=== PATIENT | female | born 1980 | race Two or more races ===

== ENCOUNTER 2017-09-12 18:12 | Inpatient (IN) | payer MEDICAID ==
[~2017-09-12] VITALS: Ht 160 cm; Wt 79.2 kg
[2017-09-12] MEDS ORDERED: SODIUM CHLORIDE 0.9% 500 ML IV ONE (19:31)
[2017-09-12 19:32] LABS: Basophils # (auto) 0 uL; Basophils % (auto) 0.4 % (0.0-2.0); Eosinophils # (auto) 0 uL; Eosinophils % (auto) 0.4 % (0.0-7.0); Hemoglobin 14.1 g/dL (12.2-16.2); Lymphocytes # (auto) 2.3 uL; Lymphocytes % (auto) 19.8 % (10.0-50.0); Mean Corpuscular Hemoglobin 30.2 pg (28.0-32.0); Mean Corpuscular Hgb Conc. 32.9 g/dL (32.0-36.0); Mean Corpuscular Volume 91.9 fL (80.0-100.0); Monocytes # (auto) 0.5 uL; Monocytes % (auto) 4.6 % (0.0-12.0); Neutrophils # (auto) 8.6 uL; Neutrophils % (auto) 74.8 % (37.0-80.0); Nucleated Red Blood Cells % 0.1 %; Platelet Count (auto) 482 10^3/uL (140-450); Red Blood Cells 4.68 10^6/uL (4.0-5.20); Red Cell Distribution Width 13.1 % (11.8-14.3); White Blood Cell 11.5 10^3/uL (4.4-10.8)
[2017-09-12] MEDS ORDERED: HYDROmorphone HCL 2 MG/ML VL IV ONE (19:45)
[2017-09-12] MEDS ORDERED: InsuLIN REG 1unit/0.01ml Soln (100units/ml) IV ONE (19:45)
[2017-09-12] MEDS ORDERED: ONDANSETRON HCL 4 MG/2 ML VIAL IV ONE (19:45)
[2017-09-12 19:55] LABS: Alanine Aminotransferase 21 U/L (13-56); Albumin 3.2 g/dL (3.4-5.0); Alkaline Phosphatase 90 U/L (45-117); Anion Gap 15 (5-15); Aspartate Aminotransferase 10 U/L (15-37); BUN/Creatinine Ratio 13.5; Bilirubin, Total 0.5 mg/dL (0.2-1.0); Blood Urea Nitrogen 14 mg/dL (7-18); Calcium 8.4 mg/dL (8.5-10.1); Carbon Dioxide 18 mmol/L (21-32); Chloride 99 mmol/L (98-107); GFR African American 78 mL/min; GFR Non-African American 64 mL/min; Potassium 3.9 mmol/L (3.5-5.1); Sodium 132 mmol/L (136-145); Total Protein 7.2 g/dL (6.4-8.2)
[2017-09-12 20:22] LABS: Glucose 604 mg/dL (74-106)
[2017-09-12 21:22] LABS: Urine Bacteria NONE SEEN /hpf (None Seen); Urine Blood Negative /uL (Negative); Urine Mucus FEW (None Seen); Urine WBC 46 /hpf (0 - 5)
[2017-09-12] MEDS ORDERED: ONDANSETRON HCL 4 MG/2 ML VIAL IV PRN (21:30)
[2017-09-12] MEDS ORDERED: SODIUM CHLORIDE 0.9% 1,000 ML IV ONE (21:30)
[2017-09-12] MEDS ORDERED: TEMAZEPAM 15 MG CAP PO PRN (21:30)
[2017-09-12] MEDS ORDERED: CYCLOBENZAPRINE HCL 10 MG TAB PO PRN ×2 (21:30→22:15)
[2017-09-12] MEDS ORDERED: DEXTROSE (50%) 50ML SYRG IV PRN (21:30)
[2017-09-12] MEDS ORDERED: ACETAMINOPHEN 325 MG TAB PO PRN (21:30)
[2017-09-12] MEDS: FAMOTIDINE 20 MG TAB PO SCH (21:43)
[2017-09-12] MEDS ORDERED: cefTRIAXone 1GM/10ml IVPUSH 10 ML IV ONE (22:15)
[2017-09-12 23:00] VITALS: BP 141/95
[2017-09-12] MEDS ORDERED: ALPR1TAB2 PO (23:08)
[2017-09-12] MEDS ORDERED: INSLANTI SC (23:08)
[2017-09-12] MEDS: SODIUM CHLORIDE 0.9% 1,000 ML IV SCH (23:45)
[2017-09-12] MEDS: HYDROcodone-ACET 5/325MG TAB PO PRN (23:56)
[2017-09-13] MEDS: InsuLIN REG 1unit/0.01ml Soln (100units/ml) SC SCH ×6 (00:04→21:25)
[2017-09-13] MEDS: ACCU-CHEK COMFORT CURVE STRIP VI SCH ×6 (00:04→21:24)
[2017-09-13] MEDS: HYDROcodone-ACET 5/325MG TAB PO PRN ×2 (04:10→08:34)
[2017-09-13 05:00] VITALS: BP 108/68
[2017-09-13 06:23] LABS: Basophils # (auto) 0 uL; Basophils % (auto) 0.2 % (0.0-2.0); Eosinophils # (auto) 0.2 uL; Eosinophils % (auto) 1.7 % (0.0-7.0); Hematocrit 39.2 % (36.0-46.0); Hemoglobin 13.6 g/dL (12.2-16.2); Lymphocytes # (auto) 4.1 uL; Lymphocytes % (auto) 39.2 % (10.0-50.0); Mean Corpuscular Hemoglobin 31.3 pg (28.0-32.0); Mean Corpuscular Hgb Conc. 34.8 g/dL (32.0-36.0); Mean Corpuscular Volume 89.9 fL (80.0-100.0); Monocytes # (auto) 0.8 uL; Monocytes % (auto) 7.5 % (0.0-12.0); Neutrophils # (auto) 5.4 uL; Neutrophils % (auto) 51.4 % (37.0-80.0); Nucleated Red Blood Cells % 0.1 %; Platelet Count (auto) 448 10^3/uL (140-450); Red Blood Cells 4.36 10^6/uL (4.0-5.20); Red Cell Distribution Width 12.7 % (11.8-14.3); White Blood Cell 10.5 10^3/uL (4.4-10.8)
[2017-09-13 06:29] LABS: Albumin 2.7 g/dL (3.4-5.0); Calcium 7.6 mg/dL (8.5-10.1); Potassium 3.5 mmol/L (3.5-5.1)
[2017-09-13 06:34] LABS: Bilirubin, Total 0.2 mg/dL (0.2-1.0); Total Protein 6.4 g/dL (6.4-8.2)
[2017-09-13] MEDS: SODIUM CHLORIDE 0.9% 1,000 ML IV SCH ×2 (08:39→21:23)
[2017-09-13 09:00] VITALS: BP 117/80
[2017-09-13] MEDS: FAMOTIDINE 20 MG TAB PO SCH ×2 (09:30→23:06)
[2017-09-13] MEDS: cefTRIAXone 1GM/10ml IVPUSH 10 ML IV SCH (09:30)
[2017-09-13] MEDS ORDERED: ENOXAPARIN SOD 40 MG/0.4 ML SYRINGE SC SCH (10:00)
[2017-09-13] MEDS ORDERED: LORazepam 2MG/ML-1ML VIAL IV ONE (10:15)
[2017-09-13] MEDS: MORPHINE SULFATE 4 MG/ML SYR/VIAL IV PRN (12:13)
[2017-09-13 13:00] VITALS: BP 120/78
[2017-09-13] MEDS: GABAPENTIN 300 MG CAP PO SCH ×2 (14:12→23:06)
[2017-09-13 17:00] VITALS: BP 113/74
[2017-09-13 22:00] VITALS: BP 119/76
[2017-09-13] MEDS: INSULIN LANTUS (GLARGINE) 1 /0.01ml (100units/ml) SC SCH (23:19)
[2017-09-14] MEDS: InsuLIN REG 1unit/0.01ml Soln (100units/ml) SC SCH ×5 (00:44→22:28)
[2017-09-14] MEDS: ACCU-CHEK COMFORT CURVE STRIP VI SCH ×6 (00:44→22:16)
[2017-09-14] MEDS: MORPHINE SULFATE 4 MG/ML SYR/VIAL IV PRN ×4 (04:32→21:19)
[2017-09-14] MEDS: SODIUM CHLORIDE 0.9% 1,000 ML IV SCH ×3 (04:38→23:58)
[2017-09-14 05:40] VITALS: BP 123/75
[2017-09-14] MEDS: GABAPENTIN 300 MG CAP PO SCH (06:41)
[2017-09-14 08:29] VITALS: BP 103/68
[2017-09-14] MEDS: cefTRIAXone 1GM/10ml IVPUSH 10 ML IV SCH (08:55)
[2017-09-14] MEDS: FAMOTIDINE 20 MG TAB PO SCH ×2 (10:00→21:19)
[2017-09-14] MEDS ORDERED: DEXAMETHASONE SOD PHOS 4 MG/1ML SDV INJ IV ONE (10:45)
[2017-09-14] MEDS ORDERED: DEXTROSE (50%) 50ML SYRG IV PRN (10:45)
[2017-09-14 12:46] VITALS: BP 93/60
[2017-09-14 17:28] VITALS: BP 117/75
[2017-09-14 22:13] VITALS: BP 109/71
[2017-09-14] MEDS: INSULIN LANTUS (GLARGINE) 1 /0.01ml (100units/ml) SC SCH (22:28)
[2017-09-15] MEDS: MORPHINE SULFATE 4 MG/ML SYR/VIAL IV PRN ×5 (03:18→22:09)
[2017-09-15 05:19] VITALS: BP 115/76
[2017-09-15 05:53] LABS: Basophils # (auto) 0 uL; Eosinophils # (auto) 0 uL; Hematocrit 39.4 % (36.0-46.0); Hemoglobin 13.4 g/dL (12.2-16.2); Lymphocytes # (auto) 1.6 uL; Lymphocytes % (auto) 11.4 % (10.0-50.0); Mean Corpuscular Hemoglobin 30.4 pg (28.0-32.0); Mean Corpuscular Volume 89.4 fL (80.0-100.0); Monocytes # (auto) 0.5 uL; Monocytes % (auto) 3.5 % (0.0-12.0); Neutrophils # (auto) 11.6 uL; Neutrophils % (auto) 85.1 % (37.0-80.0); Nucleated Red Blood Cells % 0.1 %; Platelet Count (auto) 435 10^3/uL (140-450); Red Cell Distribution Width 12.5 % (11.8-14.3); White Blood Cell 13.6 10^3/uL (4.4-10.8)
[2017-09-15] MEDS: ACCU-CHEK COMFORT CURVE STRIP VI SCH ×4 (06:06→22:19)
[2017-09-15 06:07] LABS: BUN/Creatinine Ratio 22.2; Calcium 8.4 mg/dL (8.5-10.1); Potassium 4.2 mmol/L (3.5-5.1)
[2017-09-15] MEDS: InsuLIN REG 1unit/0.01ml Soln (100units/ml) SC SCH ×4 (06:20→22:24)
[2017-09-15] MEDS: SODIUM CHLORIDE 0.9% 1,000 ML IV SCH (08:16)
[2017-09-15 09:00] VITALS: BP 110/70
[2017-09-15] MEDS: cefTRIAXone 1GM/10ml IVPUSH 10 ML IV SCH (10:47)
[2017-09-15] MEDS: FAMOTIDINE 20 MG TAB PO SCH ×2 (10:48→22:10)
[2017-09-15 13:00] VITALS: BP 118/74
[2017-09-15 17:00] VITALS: BP 118/76
[2017-09-15] MEDS: CYCLOBENZAPRINE HCL 10 MG TAB PO SCH ×2 (18:00→22:09)
[2017-09-15 21:17] VITALS: BP 141/95
[2017-09-15] MEDS: oxyCODONE ER 10 MG TAB PO SCH (22:10)
[2017-09-15] MEDS: INSULIN LANTUS (GLARGINE) 1 /0.01ml (100units/ml) SC SCH (22:24)
[2017-09-16] MEDS: SODIUM CHLORIDE 0.9% 1,000 ML IV SCH (01:08)
[2017-09-16] MEDS: MORPHINE SULFATE 4 MG/ML SYR/VIAL IV PRN (04:21)
[2017-09-16 05:21] VITALS: BP 130/86
[2017-09-16] MEDS: oxyCODONE ER 10 MG TAB PO SCH ×3 (06:23→21:37)
[2017-09-16] MEDS: CYCLOBENZAPRINE HCL 10 MG TAB PO SCH ×3 (06:23→21:36)
[2017-09-16] MEDS: InsuLIN REG 1unit/0.01ml Soln (100units/ml) SC SCH ×4 (06:24→23:46)
[2017-09-16] MEDS: ACCU-CHEK COMFORT CURVE STRIP VI SCH ×4 (06:27→22:00)
[2017-09-16 07:57] VITALS: BP 121/80
[2017-09-16] MEDS: cefTRIAXone 1GM/10ml IVPUSH 10 ML IV SCH (09:10)
[2017-09-16] MEDS ORDERED: INSULIN LANTUS (GLARGINE) 1 /0.01ml (100units/ml) SC ONE (10:15)
[2017-09-16] MEDS ORDERED: MORPHINE SULFATE 4 MG/ML SYR/VIAL IV PRN (10:15)
[2017-09-16] MEDS: FAMOTIDINE 20 MG TAB PO SCH ×2 (10:15→21:36)
[2017-09-16 12:08] VITALS: BP 139/87
[2017-09-16 16:32] VITALS: BP 108/60
[2017-09-16 20:00] VITALS: BP 108/60
[2017-09-16] MEDS ORDERED: INSULIN LANTUS (GLARGINE) 1 /0.01ml (100units/ml) SC SCH (22:00)
[2017-09-16 22:09] VITALS: BP 131/65
[2017-09-17] VITALS (7 sets, daily range): BP systolic 112–144; BP diastolic 75–87
[2017-09-17] MEDS: CYCLOBENZAPRINE HCL 10 MG TAB PO SCH ×3 (06:01→22:09)
[2017-09-17] MEDS: ACCU-CHEK COMFORT CURVE STRIP VI SCH ×4 (06:02→22:23)
[2017-09-17] MEDS: InsuLIN REG 1unit/0.01ml Soln (100units/ml) SC SCH ×4 (06:02→22:23)
[2017-09-17] MEDS: oxyCODONE ER 10 MG TAB PO SCH ×3 (06:02→22:09)
[2017-09-17] MEDS: FAMOTIDINE 20 MG TAB PO SCH ×2 (09:44→22:08)
[2017-09-17] MEDS: INSULIN LANTUS (GLARGINE) 1 /0.01ml (100units/ml) SC SCH ×2 (10:09→22:24)
[2017-09-17] MEDS: predniSONE 20 MG TAB PO SCH ×2 (10:09→22:09)
[2017-09-18 05:08] VITALS: BP 94/66
[2017-09-18] MEDS: oxyCODONE ER 10 MG TAB PO SCH ×3 (05:46→21:32)
[2017-09-18] MEDS: CYCLOBENZAPRINE HCL 10 MG TAB PO SCH ×3 (05:46→21:32)
[2017-09-18] MEDS: ACCU-CHEK COMFORT CURVE STRIP VI SCH ×4 (05:50→21:33)
[2017-09-18] MEDS: InsuLIN REG 1unit/0.01ml Soln (100units/ml) SC SCH ×4 (06:18→21:33)
[2017-09-18 07:47] VITALS: BP 157/70
[2017-09-18] MEDS: INSULIN LANTUS (GLARGINE) 1 /0.01ml (100units/ml) SC SCH ×2 (08:09→21:33)
[2017-09-18] MEDS: FAMOTIDINE 20 MG TAB PO SCH ×2 (08:09→21:32)
[2017-09-18] MEDS: predniSONE 20 MG TAB PO SCH ×2 (08:09→21:31)
[2017-09-18 11:57] VITALS: BP 113/69
[2017-09-18 16:28] VITALS: BP 136/84
[2017-09-18 21:52] VITALS: BP 125/78
[2017-09-19] MEDS ORDERED: DEXTROSE (50%) 50ML SYRG IV PRN (02:45)
[2017-09-19] MEDS: InsuLIN REG 1unit/0.01ml Soln (100units/ml) SC SCH ×3 (04:12→12:00)
[2017-09-19] MEDS: ACCU-CHEK COMFORT CURVE STRIP VI SCH ×3 (04:12→12:00)
[2017-09-19 05:19] VITALS: BP 146/52
[2017-09-19] MEDS: oxyCODONE ER 10 MG TAB PO SCH (06:02)
[2017-09-19] MEDS: CYCLOBENZAPRINE HCL 10 MG TAB PO SCH (06:02)
[2017-09-19 08:00] VITALS: BP 135/83
[2017-09-19] MEDS: predniSONE 20 MG TAB PO SCH (09:57)
[2017-09-19] MEDS: FAMOTIDINE 20 MG TAB PO SCH (09:57)
[2017-09-19] MEDS: INSULIN LANTUS (GLARGINE) 1 /0.01ml (100units/ml) SC SCH (09:59)
[2017-09-19 11:51] VITALS: BP 135/83
[2017-09-19] MEDS ORDERED: CYCLOBENZAPRINE HCL 10 MG TAB PO SCH (14:00)
== END 2017-09-19 12:10 | disposition home or self-care (01) | DRG 347 ==
LOC: ER 18:12 → OVERFLOW 18:13 → CENTRAL 23:50
PROVIDERS: ADMIT Nurse Practitioner; ATTEND Internal Medicine
DX: M48.061 Spinal stenosis, lumbar region without neurogenic claudication (principal); E10.42 Type 1 diabetes mellitus with diabetic polyneuropathy; E10.621 Type 1 diabetes mellitus with foot ulcer; E44.0 Moderate protein-calorie malnutrition; M51.17 Intervertebral disc disorders with radiculopathy, lumbosacral region; L97.529 Non-pressure chronic ulcer of other part of left foot with unspecified severity; N39.0 Urinary tract infection, site not specified; E10.65 Type 1 diabetes mellitus with hyperglycemia; E66.3 Overweight; F41.9 Anxiety disorder, unspecified; G89.29 Other chronic pain; M77.30 Calcaneal spur, unspecified foot; Z79.4 Long term (current) use of insulin; Z80.0 Family history of malignant neoplasm of digestive organs; Z83.3 Family history of diabetes mellitus; Z88.8 Allergy status to other drugs, medicaments and biological substances; Z68.30 Body mass index [BMI] 30.0-30.9, adult
CPT/HCPCS: 36415; 72131; 72148; 73630; 80048; 80053; 81001; 82962; 83036; 83735; 84484; 84702; 85025; 87077; 87186; 87205; 94761; 96374; 96375; J1100; J1815; J2405

== ENCOUNTER 2018-01-01 09:48 | Inpatient (IN) | payer MEDICAID ==
[~2018-01-01] VITALS: Ht 160 cm; Wt 78.8 kg
[~2018-01-01 09:48] MED LIST: ALPR1TAB2 PO; INSLANTI SC
[2018-01-01 10:34] LABS: Basophils # (auto) 0 uL; Basophils % (auto) 0.3 % (0.0-2.0); Eosinophils # (auto) 0.2 uL; Mean Corpuscular Hgb Conc. 32.9 g/dL (32.0-36.0); Nucleated Red Blood Cells % 0.1 %; Red Blood Cells 4.75 10^6/uL (4.0-5.20)
[2018-01-01 10:37] LABS: Eosinophils % (auto) 2.3 % (0.0-7.0); Hematocrit 43.8 % (36.0-46.0); Hemoglobin 14.4 g/dL (12.2-16.2); Lymphocytes # (auto) 2.3 uL; Lymphocytes % (auto) 34.5 % (10.0-50.0); Mean Corpuscular Hemoglobin 30.3 pg (28.0-32.0); Mean Corpuscular Volume 92.1 fL (80.0-100.0); Monocytes # (auto) 0.5 uL; Neutrophils # (auto) 3.6 uL; Neutrophils % (auto) 54.9 % (37.0-80.0); Platelet Count (auto) 449 10^3/uL (140-450); Red Cell Distribution Width 13.1 % (11.8-14.3); White Blood Cell 6.5 10^3/uL (4.4-10.8)
[2018-01-01 10:59] LABS: Alanine Aminotransferase 30 U/L (13-56); Alkaline Phosphatase 102 U/L (45-117); Anion Gap 8 (5-15); Aspartate Aminotransferase 19 U/L (15-37); BUN/Creatinine Ratio 14.6; Bilirubin, Total 0.2 mg/dL (0.2-1.0); Blood Urea Nitrogen 14 mg/dL (7-18); Calcium 8.8 mg/dL (8.5-10.1); Carbon Dioxide 26 mmol/L (21-32); Chloride 99 mmol/L (98-107); GFR African American 85 mL/min; GFR Non-African American 70 mL/min; Potassium 4.4 mmol/L (3.5-5.1); Sodium 133 mmol/L (136-145); Total Protein 7.9 g/dL (6.4-8.2)
[2018-01-01 11:05] LABS: Glucose 571 mg/dL (74-106)
[2018-01-01 11:09] LABS: Urine Bacteria FEW /hpf (None Seen); Urine Blood Negative /uL (Negative); Urine Specific Gravity 1.037 (1.001-1.035); Urine WBC 1 /hpf (0 - 5)
[2018-01-01] MEDS ORDERED: CLINDAMYCIN 600MG IV 50 ML IV ONE (13:00)
[2018-01-01] MEDS ORDERED: InsuLIN REG 1unit/0.01ml Soln (100units/ml) SC ONE ×2 (13:00→13:15)
[2018-01-01] MEDS ORDERED: SODIUM CHLORIDE 0.9% 1,000 ML IVB ONE (13:00)
[2018-01-01] MEDS ORDERED: cefTRIAXone 1GM/10ml IVPUSH 10 ML IV ONE (14:45)
[2018-01-01] MEDS ORDERED: DEXTROSE (50%) 50ML SYRG IV PRN (14:45)
[2018-01-01] MEDS ORDERED: VANCOMYCIN PER PHARMACY 0 MG IV SCH (14:45)
[2018-01-01] MEDS: SODIUM CHLORIDE 0.9% 1,000 ML IV SCH (15:12)
[2018-01-01] MEDS: VANCOMYCIN 1GM/250ML 250 ML IV SCH (17:57)
[2018-01-01 18:00] VITALS: BP 100/65
[2018-01-01] MEDS: HYDROcodone-ACET 5/325MG TAB PO PRN (18:24)
[2018-01-01] MEDS: ACCU-CHEK COMFORT CURVE STRIP VI SCH ×2 (18:24→22:27)
[2018-01-01] MEDS: InsuLIN REG 1unit/0.01ml Soln (100units/ml) SC SCH ×2 (18:25→22:26)
[2018-01-01] MEDS ORDERED: DAKINS HALF STR 0.25% (NaHypochlorite) 473 ML TOPICAL SOL TOP ONE (21:45)
[2018-01-01 22:00] VITALS: BP 122/80
[2018-01-01] MEDS: metroNIDAZOLE 500 MG TAB PO SCH (22:26)
[2018-01-01] MEDS: INSULIN LANTUS (GLARGINE) 1 /0.01ml (100units/ml) SC SCH (22:27)
[2018-01-01] MEDS: MORPHINE SULF INJ 2 MG/ML SYRINGE 1ML IV PRN (22:53)
[2018-01-02] MEDS: SODIUM CHLORIDE 0.9% 1,000 ML IV SCH ×2 (00:40→10:51)
[2018-01-02] MEDS: HYDROcodone-ACET 5/325MG TAB PO PRN ×2 (00:40→06:25)
[2018-01-02] MEDS: MORPHINE SULF INJ 2 MG/ML SYRINGE 1ML IV PRN ×3 (03:18→21:34)
[2018-01-02 05:00] VITALS: BP 99/70
[2018-01-02] MEDS: VANCOMYCIN 1GM/250ML 250 ML IV SCH ×2 (05:04→16:44)
[2018-01-02] MEDS: metroNIDAZOLE 500 MG TAB PO SCH ×3 (05:04→21:32)
[2018-01-02] MEDS: INSULIN LANTUS (GLARGINE) 1 /0.01ml (100units/ml) SC SCH ×2 (06:24→21:33)
[2018-01-02] MEDS: InsuLIN REG 1unit/0.01ml Soln (100units/ml) SC SCH ×4 (06:24→21:33)
[2018-01-02] MEDS: ACCU-CHEK COMFORT CURVE STRIP VI SCH ×4 (06:25→21:34)
[2018-01-02 07:25] LABS: Basophils # (auto) 0 uL; Basophils % (auto) 0.2 % (0.0-2.0); Eosinophils # (auto) 0.2 uL; Hematocrit 36.2 % (36.0-46.0); Hemoglobin 12.1 g/dL (12.2-16.2); Lymphocytes # (auto) 3.6 uL; Lymphocytes % (auto) 54.3 % (10.0-50.0); Mean Corpuscular Hemoglobin 30.4 pg (28.0-32.0); Mean Corpuscular Hgb Conc. 33.3 g/dL (32.0-36.0); Mean Corpuscular Volume 91.3 fL (80.0-100.0); Monocytes # (auto) 0.5 uL; Monocytes % (auto) 7.6 % (0.0-12.0); Neutrophils # (auto) 2.3 uL; Neutrophils % (auto) 34.9 % (37.0-80.0); Nucleated Red Blood Cells % 0.1 %; Platelet Count (auto) 377 10^3/uL (140-450); Red Blood Cells 3.96 10^6/uL (4.0-5.20); Red Cell Distribution Width 13.1 % (11.8-14.3); White Blood Cell 6.6 10^3/uL (4.4-10.8)
[2018-01-02 07:30] LABS: INR 0.95 (0.9-1.15); Partial Thromboplastin Time 26.5 sec (23.78-33.04); Prothrombin Time 10.2 sec (9.27-12.13)
[2018-01-02 07:39] LABS: BUN/Creatinine Ratio 22.9; Calcium 7.5 mg/dL (8.5-10.1); Potassium 3.6 mmol/L (3.5-5.1)
[2018-01-02 08:00] VITALS: BP 108/70
[2018-01-02] MEDS: FLUCONAZOLE 100 MG TAB PO SCH (09:08)
[2018-01-02] MEDS: cefTRIAXone 1GM/10ml IVPUSH 10 ML IV SCH (09:11)
[2018-01-02] MEDS: ONDANSETRON HCL 4 MG/2 ML VIAL IV PRN (09:17)
[2018-01-02] MEDS: DAKINS QUARTER STR 0.125% (NaHypochlorite) 473 ML TOPICAL SOL TOP SCH ×2 (12:09→21:33)
[2018-01-02] MEDS: SILVER SULFADIAZINE 1 % TOPICAL CREAM 50GM TOP SCH ×2 (12:10→21:33)
[2018-01-02 13:00] VITALS: BP 123/81
[2018-01-02] MEDS ORDERED: OXY20CRT PO (15:46)
[2018-01-02 16:00] VITALS: BP 124/88
[2018-01-02 16:33] VITALS: BP 109/70
[2018-01-02] MEDS: ALPRAZolam 0.5 MG TAB PO PRN (16:45)
[2018-01-02 22:00] VITALS: BP 96/63
[2018-01-03] MEDS: ALPRAZolam 0.5 MG TAB PO PRN (04:51)
[2018-01-03] MEDS: VANCOMYCIN 1GM/250ML 250 ML IV SCH ×2 (04:51→18:04)
[2018-01-03 05:03] VITALS: BP 101/72
[2018-01-03] MEDS: metroNIDAZOLE 500 MG TAB PO SCH ×3 (06:14→22:46)
[2018-01-03] MEDS: INSULIN LANTUS (GLARGINE) 1 /0.01ml (100units/ml) SC SCH ×2 (06:15→23:08)
[2018-01-03] MEDS: InsuLIN REG 1unit/0.01ml Soln (100units/ml) SC SCH ×4 (06:15→23:07)
[2018-01-03] MEDS: ACCU-CHEK COMFORT CURVE STRIP VI SCH ×4 (06:15→23:09)
[2018-01-03 06:53] LABS: Basophils # (auto) 0 uL; Basophils % (auto) 0.3 % (0.0-2.0); Eosinophils # (auto) 0.2 uL; Hematocrit 40.1 % (36.0-46.0); Hemoglobin 13.9 g/dL (12.2-16.2); Lymphocytes # (auto) 2.9 uL; Lymphocytes % (auto) 46.8 % (10.0-50.0); Mean Corpuscular Hemoglobin 31.4 pg (28.0-32.0); Mean Corpuscular Hgb Conc. 34.6 g/dL (32.0-36.0); Mean Corpuscular Volume 90.6 fL (80.0-100.0); Monocytes # (auto) 0.4 uL; Monocytes % (auto) 6.3 % (0.0-12.0); Neutrophils # (auto) 2.7 uL; Neutrophils % (auto) 43.6 % (37.0-80.0); Nucleated Red Blood Cells % 0.1 %; Platelet Count (auto) 386 10^3/uL (140-450); Red Blood Cells 4.43 10^6/uL (4.0-5.20); Red Cell Distribution Width 12.9 % (11.8-14.3); White Blood Cell 6.2 10^3/uL (4.4-10.8)
[2018-01-03 07:05] LABS: BUN/Creatinine Ratio 18.9; Calcium 7.8 mg/dL (8.5-10.1); Potassium 3.8 mmol/L (3.5-5.1)
[2018-01-03 08:52] VITALS: BP 105/69
[2018-01-03] MEDS: cefTRIAXone 1GM/10ml IVPUSH 10 ML IV SCH (09:42)
[2018-01-03] MEDS: SILVER SULFADIAZINE 1 % TOPICAL CREAM 50GM TOP SCH ×2 (09:43→23:09)
[2018-01-03] MEDS: FLUCONAZOLE 100 MG TAB PO SCH (09:43)
[2018-01-03] MEDS: ONDANSETRON HCL 4 MG/2 ML VIAL IV PRN (09:57)
[2018-01-03] MEDS: MORPHINE SULF INJ 2 MG/ML SYRINGE 1ML IV PRN ×3 (09:57→22:46)
[2018-01-03] MEDS: DAKINS QUARTER STR 0.125% (NaHypochlorite) 473 ML TOPICAL SOL TOP SCH ×2 (10:00→23:08)
[2018-01-03 12:30] VITALS: BP 119/79
[2018-01-03 16:30] VITALS: BP 90/58
[2018-01-03 21:56] VITALS: BP 128/73
[2018-01-04 04:51] VITALS: BP 99/70
[2018-01-04] MEDS: VANCOMYCIN 1GM/250ML 250 ML IV SCH ×2 (06:08→09:02)
[2018-01-04] MEDS: metroNIDAZOLE 500 MG TAB PO SCH (06:44)
[2018-01-04] MEDS: ACCU-CHEK COMFORT CURVE STRIP VI SCH ×4 (06:44→22:22)
[2018-01-04] MEDS: InsuLIN REG 1unit/0.01ml Soln (100units/ml) SC SCH ×3 (06:45→22:38)
[2018-01-04] MEDS: INSULIN LANTUS (GLARGINE) 1 /0.01ml (100units/ml) SC SCH ×2 (06:45→22:38)
[2018-01-04] MEDS: ALPRAZolam 0.5 MG TAB PO PRN ×2 (07:00→22:36)
[2018-01-04 09:00] VITALS: BP 88/64
[2018-01-04] MEDS: cefTRIAXone 1GM/10ml IVPUSH 10 ML IV SCH (09:02)
[2018-01-04] MEDS: FLUCONAZOLE 100 MG TAB PO SCH (10:33)
[2018-01-04] MEDS: SILVER SULFADIAZINE 1 % TOPICAL CREAM 50GM TOP SCH ×2 (10:33→22:38)
[2018-01-04] MEDS: DAKINS QUARTER STR 0.125% (NaHypochlorite) 473 ML TOPICAL SOL TOP SCH ×2 (10:33→22:40)
[2018-01-04 13:00] VITALS: BP 113/70
[2018-01-04] MEDS: ceFAZolin 1GM/50ML 50 ML IV SCH ×2 (14:23→22:36)
[2018-01-04 17:00] VITALS: BP 109/68
[2018-01-04 21:09] VITALS: BP 118/76
[2018-01-04] MEDS: ASCORBIC ACID 500 MG TAB PO SCH (22:36)
[2018-01-04] MEDS: MORPHINE SULF INJ 2 MG/ML SYRINGE 1ML IV PRN (23:46)
[2018-01-05 05:15] VITALS: BP 91/58
[2018-01-05] MEDS: ceFAZolin 1GM/50ML 50 ML IV SCH ×3 (05:42→22:33)
[2018-01-05] MEDS: ACCU-CHEK COMFORT CURVE STRIP VI SCH ×4 (06:31→22:34)
[2018-01-05] MEDS: INSULIN LANTUS (GLARGINE) 1 /0.01ml (100units/ml) SC SCH ×2 (06:49→22:33)
[2018-01-05 09:00] VITALS: BP 109/69
[2018-01-05] MEDS: MORPHINE SULF INJ 2 MG/ML SYRINGE 1ML IV PRN ×3 (09:55→18:42)
[2018-01-05] MEDS: SILVER SULFADIAZINE 1 % TOPICAL CREAM 50GM TOP SCH ×2 (09:56→22:34)
[2018-01-05] MEDS: MULTIPLE VITAMINS W/ MINERALS TAB PO SCH ×2 (09:57→10:00)
[2018-01-05] MEDS: ASCORBIC ACID 500 MG TAB PO SCH ×2 (09:57→22:33)
[2018-01-05] MEDS: FLUCONAZOLE 100 MG TAB PO SCH (09:57)
[2018-01-05] MEDS: DAKINS QUARTER STR 0.125% (NaHypochlorite) 473 ML TOPICAL SOL TOP SCH ×2 (09:58→22:00)
[2018-01-05] MEDS: InsuLIN REG 1unit/0.01ml Soln (100units/ml) SC SCH ×5 (09:58→22:33)
[2018-01-05 13:00] VITALS: BP 112/65
[2018-01-05] MEDS: ALPRAZolam 0.5 MG TAB PO PRN (14:15)
[2018-01-05 17:00] VITALS: BP 122/84
[2018-01-05 22:00] VITALS: BP 121/91
[2018-01-06 05:00] VITALS: BP 138/93
[2018-01-06] MEDS: ceFAZolin 1GM/50ML 50 ML IV SCH (05:39)
[2018-01-06] MEDS: ACCU-CHEK COMFORT CURVE STRIP VI SCH ×2 (06:40→12:49)
[2018-01-06] MEDS: InsuLIN REG 1unit/0.01ml Soln (100units/ml) SC SCH ×2 (06:40→12:49)
[2018-01-06] MEDS: INSULIN LANTUS (GLARGINE) 1 /0.01ml (100units/ml) SC SCH (06:40)
[2018-01-06 09:53] VITALS: BP 116/69
[2018-01-06] MEDS ORDERED: LIDOCAINE 1% (LOCAL ANESTH.) PF 5ml SDV ONE (11:03)
[2018-01-06] MEDS: MULTIPLE VITAMINS W/ MINERALS TAB PO SCH (12:41)
[2018-01-06] MEDS: FLUCONAZOLE 100 MG TAB PO SCH (12:42)
[2018-01-06] MEDS: ASCORBIC ACID 500 MG TAB PO SCH (12:42)
[2018-01-06] MEDS: HYDROcodone-ACET 5/325MG TAB PO PRN (12:48)
[2018-01-06] MEDS: DAKINS QUARTER STR 0.125% (NaHypochlorite) 473 ML TOPICAL SOL TOP SCH (12:50)
[2018-01-06] MEDS: SILVER SULFADIAZINE 1 % TOPICAL CREAM 50GM TOP SCH (12:50)
[2018-01-06 13:00] VITALS: BP 146/89
[2018-01-06] MEDS: MORPHINE SULF INJ 2 MG/ML SYRINGE 1ML IV PRN (15:02)
== END 2018-01-06 15:50 | disposition home or self-care (01) | DRG 380 ==
LOC: ER 09:50 → OVERFLOW 09:51 → CENTRAL 17:57
PROVIDERS: ADMIT Internal Medicine; ATTEND Internal Medicine
PROC: 0JBR0ZZ Excision of Left Foot Subcutaneous Tissue and Fascia, Open Approach (ICD-10-PCS; principal; 2018-01-01)
PROC: 0Y9M0ZZ Drainage of Right Foot, Open Approach (ICD-10-PCS; 2018-01-01)
DX: E11.621 Type 2 diabetes mellitus with foot ulcer (principal); L97.529 Non-pressure chronic ulcer of other part of left foot with unspecified severity; E11.00 Type 2 diabetes mellitus with hyperosmolarity without nonketotic hyperglycemic-hyperosmolar coma (NKHHC); N17.9 Acute kidney failure, unspecified; M86.10 Other acute osteomyelitis, unspecified site; E11.40 Type 2 diabetes mellitus with diabetic neuropathy, unspecified; L03.031 Cellulitis of right toe; E44.1 Mild protein-calorie malnutrition; N39.0 Urinary tract infection, site not specified; B35.3 Tinea pedis; E11.69 Type 2 diabetes mellitus with other specified complication; E66.9 Obesity, unspecified; B95.61 Methicillin susceptible Staphylococcus aureus infection as the cause of diseases classified elsewhere; L02.611 Cutaneous abscess of right foot; Z59.0 Homelessness; Z79.4 Long term (current) use of insulin; Z80.0 Family history of malignant neoplasm of digestive organs; Z83.3 Family history of diabetes mellitus; Z91.14 Patient's other noncompliance with medication regimen; Z88.8 Allergy status to other drugs, medicaments and biological substances; Z68.30 Body mass index [BMI] 30.0-30.9, adult
CPT/HCPCS: 36415; 73630; 73718; 80048; 80053; 80202; 81001; 81025; 82962; 83036; 85025; 85610; 85652; 85730; 87077; 87081; 87086; 87186; 87205; 93926; 94761; 96365; 96367; 96372; 96375; A6257; J0690; J0696; J1815; J2405; J3490

== ENCOUNTER 2018-04-23 15:16 | Emergency (ER) | payer MEDICAID ==
[~2018-04-23] VITALS: Ht 160 cm; Wt 77.1 kg
[~2018-04-23 15:16] MED LIST changes: +OXY20CRT PO
[2018-04-23 16:29] VITALS: BP 140/89
[2018-04-23] MEDS ORDERED: KETOROLAC TROMETH 60MG/2ML VIAL IM ONE (22:30)
[2018-04-23] MEDS ORDERED: cefTRIAXone SOD 1,000 MG VL IM ONE (22:30)
== END 2018-04-23 22:30 | disposition home or self-care (01) ==
LOC: ER 15:27
DX: L03.116 Cellulitis of left lower limb (principal); L30.9 Dermatitis, unspecified; E11.9 Type 2 diabetes mellitus without complications; Z88.8 Allergy status to other drugs, medicaments and biological substances; Z79.4 Long term (current) use of insulin
CPT/HCPCS: 93971; 96372; 99284; J0696; J1885

== ENCOUNTER 2018-08-14 22:14 | Emergency (ER) | payer MEDICAID ==
[~2018-08-14] VITALS: Ht 160 cm; Wt 73.9 kg
[2018-08-14 22:27] VITALS: BP 139/95
[2018-08-14 22:44] LABS: Basophils # (auto) 0 uL; Basophils % (auto) 0.3 % (0.0-2.0); Eosinophils # (auto) 0.1 uL; Eosinophils % (auto) 1.4 % (0.0-7.0); Hematocrit 43.8 % (36.0-46.0); Hemoglobin 14.9 g/dL (12.2-16.2); Lymphocytes % (auto) 32.4 % (10.0-50.0); Mean Corpuscular Hemoglobin 31.1 pg (28.0-32.0); Mean Corpuscular Hgb Conc. 33.9 g/dL (32.0-36.0); Mean Corpuscular Volume 91.6 fL (80.0-100.0); Monocytes # (auto) 0.6 uL; Neutrophils # (auto) 5.4 uL; Neutrophils % (auto) 58.9 % (37.0-80.0); Platelet Count (auto) 414 10^3/uL (140-450); Red Blood Cells 4.78 10^6/uL (4.0-5.20); Red Cell Distribution Width 12.9 % (11.8-14.3); White Blood Cell 9.2 10^3/uL (4.4-10.8)
[2018-08-14 23:01] LABS: Albumin 3.6 g/dL (3.4-5.0); BUN/Creatinine Ratio 11.5; Calcium 9.2 mg/dL (8.5-10.1); Potassium 4.3 mmol/L (3.5-5.1)
[2018-08-14 23:04] LABS: Bilirubin, Total 0.3 mg/dL (0.2-1.0); Total Protein 7.8 g/dL (6.4-8.2)
[2018-08-14 23:40] LABS: Urine Bacteria FEW /hpf (None Seen); Urine Blood Negative /uL (Negative); Urine Specific Gravity 1.044 (1.001-1.035); Urine WBC 8 /hpf (0 - 5)
== END 2018-08-15 00:20 | disposition left against medical advice (07) ==
LOC: ER 22:16
DX: E10.621 Type 1 diabetes mellitus with foot ulcer (principal); Z53.21 Procedure and treatment not carried out due to patient leaving prior to being seen by health care provider
CPT/HCPCS: 36415; 80053; 81001; 81025; 85025

== ENCOUNTER 2019-03-11 00:08 | Inpatient (IN) | payer MEDICAID ==
[~2019-03-11] VITALS: Ht 160 cm; Wt 73.9 kg
[2019-03-11 00:49] LABS: Basophils # (auto) 0 uL; Basophils % (auto) 0.3 % (0.0-2.0); Eosinophils # (auto) 0 uL; Eosinophils % (auto) 0.1 % (0.0-7.0); Hematocrit 40.5 % (36.0-46.0); Hemoglobin 13.3 g/dL (12.2-16.2); Lymphocytes # (auto) 1.2 uL; Lymphocytes % (auto) 8.8 % (10.0-50.0); Mean Corpuscular Hemoglobin 29.7 pg (28.0-32.0); Mean Corpuscular Hgb Conc. 32.8 g/dL (32.0-36.0); Mean Corpuscular Volume 90.7 fL (80.0-100.0); Monocytes % (auto) 7.6 % (0.0-12.0); Neutrophils # (auto) 11.5 uL; Neutrophils % (auto) 83.2 % (37.0-80.0); Platelet Count (auto) 534 10^3/uL (140-450); Red Blood Cells 4.47 10^6/uL (4.0-5.20); Red Cell Distribution Width 12.5 % (11.8-14.3); White Blood Cell 13.8 10^3/uL (4.4-10.8)
[2019-03-11] MEDS ORDERED: SODIUM CHLORIDE 0.9% 1,000 ML IVB ONE (00:57)
[2019-03-11] MEDS ORDERED: KETOROLAC TROMETH 30 MG/ML 1ML VIAL IV ONE (01:00)
[2019-03-11] MEDS ORDERED: CLINDAMYCIN 900MG IV 50 ML IV ONE (01:00)
[2019-03-11] MEDS ORDERED: ONDANSETRON HCL 4 MG/2 ML VIAL IV ONE (01:00)
[2019-03-11 01:07] LABS: Albumin 2.7 g/dL (3.4-5.0); BUN/Creatinine Ratio 17.1; Calcium 9.1 mg/dL (8.5-10.1); Potassium 4.3 mmol/L (3.5-5.1)
[2019-03-11 01:10] LABS: Bilirubin, Total 0.4 mg/dL (0.2-1.0); Total Protein 8.9 g/dL (6.4-8.2)
[2019-03-11 01:14] LABS: Uric Acid 5.3 mg/dL (2.6-6.0)
[2019-03-11] MEDS ORDERED: SODIUM CHLORIDE 0.9% 1,000 ML IV ONE (01:30)
[2019-03-11] MEDS ORDERED: InsuLIN REG 1unit/0.01ml Soln (100units/ml) IV ONE (01:30)
[2019-03-11 01:43] LABS: CRP High Sensitivity > 19 mg/dL (< 0.3)
[2019-03-11] MEDS ORDERED: ONDANSETRON HCL 4 MG/2 ML VIAL IV PRN (06:15)
[2019-03-11] MEDS ORDERED: HYDROcodone-ACET 5/325MG TAB PO PRN (06:15)
[2019-03-11] MEDS ORDERED: ACETAMINOPHEN 325 MG TAB PO PRN (06:15)
[2019-03-11] MEDS ORDERED: DEXTROSE (50%) 50ML SYRG IV PRN ×2 (06:15→12:00)
[2019-03-11] MEDS ORDERED: TEMAZEPAM 15 MG CAP PO PRN (06:15)
[2019-03-11] MEDS: SODIUM CHLORIDE 0.9% 1,000 ML IV SCH ×2 (06:21→16:47)
[2019-03-11 07:02] LABS: Calcium 8.5 mg/dL (8.5-10.1); Potassium 3.7 mmol/L (3.5-5.1)
[2019-03-11 07:05] LABS: BUN/Creatinine Ratio 21.2
[2019-03-11] MEDS ORDERED: InsuLIN REG 1unit/0.01ml Soln (100units/ml) SC SCH (08:00)
[2019-03-11] MEDS ORDERED: metroNIDAZOLE 500MG/100ML 100 ML IV ONE (08:30)
[2019-03-11] MEDS: ACCU-CHEK COMFORT CURVE STRIP VI SCH ×4 (08:33→17:37)
[2019-03-11 09:00] VITALS: BP 98/61
--- NOTE | 2019-03-11 09:00 | NUR ---
MS admit from ER KENNA GONZALEZ R admitted to MS after SBAR received. Patient oriented to Rosario Berg, primary RN, unit, room, bed, and unit policies regarding patient care and visiting hours. Patient weighed by bed scale and encouraged to call if they need something. All questions and concerns addressed, patient verbalized understanding.
[2019-03-11] MEDS: FAMOTIDINE 20 MG TAB PO SCH ×2 (10:24→23:02)
--- NOTE | 2019-03-11 11:00 | NUR ---
WOUND CARE NOTE: IN TO SEE PATIENT AT THIS TIME PER WOUND CARE CONSULT REQUEST. PATIENT RECENTLY ADMITTED TO [facility] WITH DIAGNOSIS OF MILD DKA. CURRENT JADON SCORE IS 17. PATIENT IS AMBULATORY, CAN SELF TURN/REPOSITION SELF. PATIENT HAS HISTORY WITH DM SINCE CHILDHOOD. SHE IS NOT COMPLIANT IN MANAGING HER BLOOD GLUCOSE LEVELS. SHE STATES THAT SHE HAS HAD DFU ULCERS TO BOTH FEET FOR MANY MONTHS. SHE IS UNABLE TO MAINTAIN/TREAT HER ULCERS DUE TO HOMELESS SITUATION. PATIENT IS NOTED TO HAVE 2 DFU ULCERS TO PLANTAR SURFACE OF RIGHT FOOT, AND 1 DFU TO LEFT PLANTAR FOOT. ALL WOUNDS HAVE CALLOUS RING, LIGHT SEROUS DRAINAGE NOTED. WOUND CULTURES COLLECTED AND SENT TO LAB FOR PROCESSING WHILE PATIENT IN THE ER, AND IS PENDING. CLEANSED BOTH WOUNDS WITH WOUND CLEANSER, PATTED DRY WITH STERILE GAUZE. APPLIED THERAHONEY INTO ALL OPEN WOUND BED AREAS. PACKED WOUND CAVITIES WITH ALGINATE ROPE, COVERED WITH FOAM AG. WRAPPED BOTH FEET WITH KERLIX, SECURED WITH TAPE. SKIN/WOUND CARE PLAN UPDATED. THERE IS A PODIATRY CONSULT PENDING. RECOMMEND: DAILY/PRN DRESSING CHANGES PER MD ORDER, DIETARY CONSULT FOR WOUNDS, SKIN/WOUND CARE PLAN, DIETARY CONSULT, CONTINUED MONITORING BY WOUND CARE TEAM. Addendum: 03/11/19 at 1807 by Chula Duran RN Amended: Links added.
[2019-03-11] MEDS: cefTRIAXone 1GM/50ML D5W 50 ML IV SCH (11:39)
[2019-03-11] MEDS ORDERED: INSULIN LANTUS (GLARGINE) 1 /0.01ml (100units/ml) SC ONE (12:00)
[2019-03-11] MEDS: InsuLIN REG 1unit/0.01ml Soln (100units/ml) SC SCH ×2 (12:15→17:37)
[2019-03-11 12:50] VITALS: BP 102/65
[2019-03-11] MEDS ORDERED: metroNIDAZOLE 500MG/100ML 100 ML IV SCH (14:00)
[2019-03-11] MEDS: CLINDAMYCIN 600MG IV 50 ML IV SCH ×2 (14:09→23:02)
--- NOTE | 2019-03-11 15:36 | NUR ---
Patient stated she is taking Seroquel PO at bedtime but cannot recall the dosage. Paged Dr. Clinton re: patient request for psych medication Seroquel PO to be ordered. Waiting for call back.
--- NOTE | 2019-03-11 16:45 | NUR ---
Urine sample sent to Lab for analysis.
[2019-03-11 17:07] VITALS: BP 124/70
[2019-03-11 18:01] LABS: Urine Bacteria NONE SEEN /hpf (None Seen); Urine Blood 2+ /uL (Negative); Urine Hyaline Cast FEW /lpf (0 - 2); Urine Mucus FEW (None Seen); Urine Specific Gravity 1.033 (1.001-1.035); Urine WBC 7 /hpf (0 - 5)
[2019-03-11 18:16] LABS: Amphetamine Screen, Urine POSITIVE (NEGATIVE); Barbiturate Scree,Urine NEGATIVE (NEGATIVE); Benzodiazephine Screen, Urine NEGATIVE (NEGATIVE); Cannabinoid Screen, Urine NEGATIVE (NEGATIVE); Cocaine Screen, Urine NEGATIVE (NEGATIVE); Opiate Scree,Urine NEGATIVE (NEGATIVE); Phencyclidine Screen, Urine NEGATIVE (NEGATIVE)
[2019-03-11] MEDS: Glucerna Carbsteady SHAKE Stawberry 8oz PO SCH (18:18)
--- NOTE | 2019-03-11 19:23 | NUR ---
KENNA GONZALEZ states they want to leave the floor Against Medical Advice (AMA) to go outside and walk. Patient encouraged to stay on floor. Patient advised of the risks of leaving AMA that if anything bad happens, hospital and staff are not liable for it. Patient verbalized understanding and signed required AMA form.
[2019-03-11 20:00] VITALS: BP 118/71
[2019-03-11 22:00] VITALS: BP 118/71
[2019-03-11] MEDS ORDERED: ATORVASTATIN 20 MG TAB PO SCH (22:00)
--- NOTE | 2019-03-11 23:00 | NUR ---
Dressing to bilateral feet wounds changed and cleansed with Dakin's solution, patient tolerated well
[2019-03-11] MEDS: DAKINS HALF STR 0.25% (NaHypochlorite) 473 ML TOPICAL SOL TOP SCH (23:02)
[2019-03-12] MEDS: ACCU-CHEK COMFORT CURVE STRIP VI SCH ×4 (00:32→17:24)
[2019-03-12] MEDS: InsuLIN REG 1unit/0.01ml Soln (100units/ml) SC SCH ×4 (00:33→17:25)
[2019-03-12] MEDS: SODIUM CHLORIDE 0.9% 1,000 ML IV SCH ×2 (02:00→13:21)
[2019-03-12 04:49] VITALS: BP 115/73
[2019-03-12 05:11] LABS: Basophils # (auto) 0 uL; Basophils % (auto) 0.2 % (0.0-2.0); Eosinophils # (auto) 0.3 uL; Eosinophils % (auto) 3.4 % (0.0-7.0); Hematocrit 33.1 % (36.0-46.0); Hemoglobin 11.1 g/dL (12.2-16.2); Lymphocytes # (auto) 2.1 uL; Lymphocytes % (auto) 25.6 % (10.0-50.0); Mean Corpuscular Hemoglobin 29.8 pg (28.0-32.0); Mean Corpuscular Hgb Conc. 33.4 g/dL (32.0-36.0); Mean Corpuscular Volume 89.1 fL (80.0-100.0); Monocytes # (auto) 0.7 uL; Monocytes % (auto) 8.3 % (0.0-12.0); Neutrophils # (auto) 5.1 uL; Neutrophils % (auto) 62.5 % (37.0-80.0); Platelet Count (auto) 463 10^3/uL (140-450); Red Blood Cells 3.72 10^6/uL (4.0-5.20); Red Cell Distribution Width 12.4 % (11.8-14.3); White Blood Cell 8.2 10^3/uL (4.4-10.8)
[2019-03-12 05:29] LABS: Albumin 1.8 g/dL (3.4-5.0); BUN/Creatinine Ratio 23.4; Potassium 3.6 mmol/L (3.5-5.1)
[2019-03-12 05:35] LABS: Bilirubin, Total 0.1 mg/dL (0.2-1.0); Total Protein 6.3 g/dL (6.4-8.2)
[2019-03-12] MEDS: CLINDAMYCIN 600MG IV 50 ML IV SCH ×3 (06:14→22:49)
--- NOTE | 2019-03-12 08:00 | NUR ---
Opening Shift Note Assumed care of patient, awake and alert. No S/S of distress/SOB or pain. Instructed on POC and to call for assist PRN, will continue to monitor for changes Q1hr and PRN.
[2019-03-12 09:00] VITALS: BP 101/68
[2019-03-12] MEDS: ASCORBIC ACID 500 MG TAB PO SCH (09:27)
[2019-03-12] MEDS: ASPirin-EC 81 mg tab PO SCH (09:27)
[2019-03-12] MEDS: cefTRIAXone 1GM/50ML D5W 50 ML IV SCH (09:27)
[2019-03-12] MEDS: FAMOTIDINE 20 MG TAB PO SCH ×2 (09:28→22:51)
[2019-03-12] MEDS: Glucerna Carbsteady SHAKE Stawberry 8oz PO SCH ×2 (09:28→18:03)
[2019-03-12] MEDS ORDERED: INSULIN LANTUS (GLARGINE) 1 /0.01ml (100units/ml) SC SCH (10:00)
[2019-03-12] MEDS: DAKINS HALF STR 0.25% (NaHypochlorite) 473 ML TOPICAL SOL TOP SCH ×2 (11:02→22:51)
[2019-03-12] MEDS ORDERED: DOCUSATE SOD 100 MG CAP PO PRN (11:45)
[2019-03-12] MEDS ORDERED: INSULIN LANTUS (GLARGINE) 1 /0.01ml (100units/ml) SC ONE (11:45)
[2019-03-12] MEDS ORDERED: DOCUSATE SOD 100 MG CAP PO ONE (11:45)
--- NOTE | 2019-03-12 12:39 | NUR ---
Nutrition consult/assessment Notes please see attached link for complete assessment. Est. Needs BW 67 [id number] kcal (23-25 kcal/kgBW), 67-87 gms pro (1.0-1.3 gms/kgBW r/t wounds severe hypoalb). Will continue to monitor pertinent labs and reassess nutrient need prn Addendum: 03/12/19 at [address] Amended: Links added.
--- NOTE | 2019-03-12 12:48 | NUR ---
Discharge planning per consult, patient has an order for a wheelchair. Referral was sent to [facility] and [facility] for auth. Obtained auth [id number]. Placed a follow up call to [facility], spoke with Dora and was advised that they have received the order, she confirmed the auth number and said per dispatch the wheelchair will be delivered between 1:30-3:30pm to patient at bedside. Nurse Ponce was advised. Addendum: 03/12/19 at 1250 by JOSH HARRINGTON Amended: Links added.
[2019-03-12 13:00] VITALS: BP 123/80
--- NOTE | 2019-03-12 13:00 | NUR ---
Request for disclosure of medical records signed and agreed by patient fax to [facility] medical records section #[phone]. Waiting for reply. Addendum: 03/12/19 at 1311 by Rosario Berg RN request was about psychiatrist evaluation and recommendation 3-4 months ago.
--- NOTE | 2019-03-12 13:48 | NUR ---
Disclosure of psychiatrist evaluation and recommendation reports from [facility] received via fax. Continue care.
--- NOTE | 2019-03-12 14:00 | NUR ---
Requested wheelchair delivered at the bedside.
--- NOTE | 2019-03-12 15:00 | NUR ---
Dr. Clinton informed that psychiatric evaluation and recommendation requested from [facility] already been received. Orders received. Will continue care.
[2019-03-12 17:31] VITALS: BP 139/84
--- NOTE | 2019-03-12 19:30 | NUR ---
Opening Shift Note Assumed care of patient, awake and alert. No S/S of distress/SOB or pain. Instructed on POC and to call for assist PRN, patient verbalized understanding, call light within reach, will continue to monitor for changes Q1hr and PRN.
[2019-03-12 22:00] VITALS: BP 133/85
[2019-03-12] MEDS: ATORVASTATIN 20 MG TAB PO SCH (22:50)
[2019-03-13] MEDS: ACCU-CHEK COMFORT CURVE STRIP VI SCH ×4 (00:16→18:15)
[2019-03-13] MEDS: InsuLIN REG 1unit/0.01ml Soln (100units/ml) SC SCH ×4 (00:17→18:27)
[2019-03-13 05:03] VITALS: BP 122/69
[2019-03-13] MEDS: CLINDAMYCIN 600MG IV 50 ML IV SCH (06:22)
--- NOTE | 2019-03-13 07:15 | NUR ---
Opening Shift Note Report received from NOC RN and rounds completed. This RN introduced to patient and POC reviewed. Patient observed resting in bed without any S/S of distress. Patient stated she is not having any pain. Patient verbalized understanding to call if needing assistance.
[2019-03-13] MEDS: Glucerna Carbsteady SHAKE Stawberry 8oz PO SCH ×3 (08:00→18:15)
[2019-03-13 08:10] VITALS: BP 103/57
[2019-03-13 08:15] VITALS: BP 103/57
[2019-03-13] MEDS ORDERED: VANCOMYCIN PER PHARMACY 0 MG IV SCH (09:15)
--- NOTE | 2019-03-13 09:30 | NUR ---
MD Rounded Dr. Clinton rounded on patient and stated she was changing the antibiotic from clindamycin to vanco. She also stated Dr. Barone would be here Saturday to see the patient. Orders observed in EMR.
[2019-03-13] MEDS: cefTRIAXone 1GM/50ML D5W 50 ML IV SCH (09:46)
[2019-03-13] MEDS: FAMOTIDINE 20 MG TAB PO SCH ×2 (09:47→21:36)
[2019-03-13] MEDS: INSULIN LANTUS (GLARGINE) 1 /0.01ml (100units/ml) SC SCH ×2 (09:47→21:37)
[2019-03-13] MEDS: ASCORBIC ACID 500 MG TAB PO SCH (09:47)
[2019-03-13] MEDS: CITALOPRAM HYDROBR 20 MG TAB PO SCH (09:47)
[2019-03-13] MEDS: DAKINS HALF STR 0.25% (NaHypochlorite) 473 ML TOPICAL SOL TOP SCH ×2 (09:48→21:40)
[2019-03-13] MEDS: ASPirin-EC 81 mg tab PO SCH (09:48)
[2019-03-13] MEDS: VANCOMYCIN 1,250 MG in D5W 5% 250 ML IV SCH (12:18)
[2019-03-13 12:58] VITALS: BP 116/67
--- NOTE | 2019-03-13 13:24 | NUR ---
PICC RN notified Aleena RN notified of PICC order and request this RN get PT/PTT order in place, consent signed by patient and MD.
[2019-03-13 14:15] LABS: INR < 0.93 (0.9-1.15); Partial Thromboplastin Time 27.3 sec (23.64-32.05)
[2019-03-13 16:27] VITALS: BP 127/74
[2019-03-13] MEDS ORDERED: LIDOCAINE 1% (LOCAL ANESTH.) PF 5ml SDV ID ONE (18:00)
--- NOTE | 2019-03-13 18:05 | NUR ---
PICC line placement Patient/Patient significant other educated on need for PICC line placement. All risks and benefits explained and all questions and concerns addressed prior to procedure. Noted past medical history and allergies with no contraindications. INR and Plt counts within acceptable range. 4 fr PICC line inserted via right basilic vein using [employer] US and Tip Location System. Sterile technique with maximum barrier precautions utilized. Blood return obtained from the lumen and each flushed easily with NS using proper technique. PICC secured with Stat-lock; biodisc and occlusive dressing applied. Stat portable chest x-ray obtained for PICC tip placement. *Baseline Arm Circumference 27cm. PICC lot # [id number].
[2019-03-13] MEDS: Pro-Stat SF 30ml Vanilla PO SCH (18:15)
--- NOTE | 2019-03-13 18:35 | NUR ---
Discharge planning per SS consult, patient has orders to dc to SNF for IV ABX therapy. Referral was sent to [facility], and [facility]. Will follow up on Saturday03.16.19 for auth and acceptance.
[2019-03-13] MEDS: ATORVASTATIN 20 MG TAB PO SCH (21:36)
[2019-03-13] MEDS: SODIUM CHLOR 0.9% PF (SALINE LOCK) 10ML VIAL/SYR IV SCH (21:41)
[2019-03-13 22:00] VITALS: BP 129/82
--- NOTE | 2019-03-13 22:00 | NUR ---
RECEIVE IN BED WATCHING TV BILATERAL PLANTER WOUND CARE DONE ORDERED
[2019-03-14] MEDS: VANCOMYCIN 1,250 MG in D5W 5% 250 ML IV SCH ×3 (00:08→23:41)
[2019-03-14] MEDS: ACCU-CHEK COMFORT CURVE STRIP VI SCH ×5 (00:09→23:49)
[2019-03-14] MEDS: InsuLIN REG 1unit/0.01ml Soln (100units/ml) SC SCH ×5 (00:09→23:49)
[2019-03-14 05:00] VITALS: BP 106/64
[2019-03-14 05:49] LABS: BUN/Creatinine Ratio 31.1; Calcium 8.6 mg/dL (8.5-10.1); Potassium 3.9 mmol/L (3.5-5.1)
--- NOTE | 2019-03-14 07:30 | NUR ---
Opening Shift Note Assumed care of patient, resting comfortably. No S/S of distress/SOB or pain on room air. Instructed on POC and to call for assist PRN, will continue to monitor for changes Q1hr and PRN. Bed in low and locked position, rails up x2, dressings to bilateral lower feet intact, wheelchair at bedside.
[2019-03-14] MEDS: Pro-Stat SF 30ml Vanilla PO SCH ×2 (08:00→17:19)
[2019-03-14 09:00] VITALS: BP 127/77
[2019-03-14] MEDS: cefTRIAXone 1GM/50ML D5W 50 ML IV SCH (10:08)
[2019-03-14] MEDS: ASPirin-EC 81 mg tab PO SCH (10:08)
[2019-03-14] MEDS: ASCORBIC ACID 500 MG TAB PO SCH (10:08)
[2019-03-14] MEDS: CITALOPRAM HYDROBR 20 MG TAB PO SCH (10:09)
[2019-03-14] MEDS: FAMOTIDINE 20 MG TAB PO SCH ×2 (10:10→22:40)
[2019-03-14] MEDS: INSULIN LANTUS (GLARGINE) 1 /0.01ml (100units/ml) SC SCH ×2 (10:11→22:00)
[2019-03-14] MEDS: DAKINS HALF STR 0.25% (NaHypochlorite) 473 ML TOPICAL SOL TOP SCH ×2 (10:11→22:00)
--- NOTE | 2019-03-14 10:30 | NUR ---
DRESSING CHANGE COMPLETED ORDERED TO BILATERAL PLANTAR FOOT WOUNDS, BILATERAL PERIWOUND HARDENED AND CALLOUSED, AND WOUND BED IS REDDENED TO BOTH WOUNDS ON RIGHT FOOT AND LEFT FOOT. LEFT FOOT IS WARM TO TOUCH, DRESSING HAS MINIMAL SEROSANGUENOUS DRAINAGE, PATIENT DENIES PAIN DURING DRESSING REMOVAL OR CLEANSING WITH DAKINS SOLUTION. PATIENT TOLERATED IT WELL.
[2019-03-14] MEDS: Glucerna Carbsteady SHAKE Stawberry 8oz PO SCH ×3 (11:42→18:14)
[2019-03-14] MEDS: SODIUM CHLOR 0.9% PF (SALINE LOCK) 10ML VIAL/SYR IV SCH ×2 (11:43→22:41)
[2019-03-14 13:00] VITALS: BP 122/76
--- NOTE | 2019-03-14 16:45 | NUR ---
CINTHIA DOWNSTAIRS PATIENT WHEELED SELF IN OWN WHEELCHAIR TO NURSES STATION REQUESTING TO GO OFF UNIT TO VISIT BROTHER DOWNSTAIRS, STATED THAT SHE IS ONLY GOING TO BE GONE FOR 20 MINUTES DOWN BY THE ER AND SHE IS NOT GOING TO SMOKE. CINTHIA PAPERWORK ALREADY SIGNED AND IN CHART, INFORMED PATIENT ON RISKS OF LEAVING FLOOR, VERBALIZES UNDERSTANDING.
[2019-03-14 17:00] VITALS: BP 117/78
--- NOTE | 2019-03-14 17:09 | NUR ---
PATIENT BACK ON UNIT
--- NOTE | 2019-03-14 19:00 | NUR ---
Opening Shift Note Assumed care of patient, awake and alert. Family on bedside. No S/S of distress/SOB or pain. Instructed on POC and to call for assist PRN, will continue to monitor for changes Q1hr and PRN.
[2019-03-14 21:51] VITALS: BP 114/67
[2019-03-14] MEDS: ATORVASTATIN 20 MG TAB PO SCH (22:40)
[2019-03-15 05:05] VITALS: BP 117/71
[2019-03-15] MEDS: ACCU-CHEK COMFORT CURVE STRIP VI SCH ×3 (06:00→17:13)
[2019-03-15] MEDS: InsuLIN REG 1unit/0.01ml Soln (100units/ml) SC SCH ×3 (06:00→17:14)
[2019-03-15 06:44] LABS: Basophils % (auto) 0.5 % (0.0-2.0); Eosinophils # (auto) 0.3 uL; Lymphocytes # (auto) 2.3 uL; Monocytes # (auto) 0.7 uL; Neutrophils # (auto) 6.8 uL; White Blood Cell 10.1 10^3/uL (4.4-10.8)
[2019-03-15 06:49] LABS: Basophils # (auto) 0 uL; Hematocrit 36.9 % (36.0-46.0); Hemoglobin 12.2 g/dL (12.2-16.2); Mean Corpuscular Hemoglobin 29.8 pg (28.0-32.0); Mean Corpuscular Hgb Conc. 33.2 g/dL (32.0-36.0); Mean Corpuscular Volume 89.9 fL (80.0-100.0); Monocytes % (auto) 6.9 % (0.0-12.0); Neutrophils % (auto) 66.6 % (37.0-80.0); Platelet Count (auto) 553 10^3/uL (140-450); Red Cell Distribution Width 12.3 % (11.8-14.3)
[2019-03-15 07:17] LABS: Albumin 2.1 g/dL (3.4-5.0); Calcium 8.6 mg/dL (8.5-10.1); Magnesium 1.9 mg/dL (1.6-2.6)
[2019-03-15 07:20] LABS: BUN/Creatinine Ratio 32.1; Bilirubin, Total 0.1 mg/dL (0.2-1.0); Phosphorus 3.9 mg/dL (2.5-4.90); Total Protein 6.8 g/dL (6.4-8.2)
--- NOTE | 2019-03-15 07:30 | NUR ---
Opening Shift Note Assumed care of patient, awake and alert. No S/S of distress/SOB or pain on room air. Instructed on POC and to call for assist PRN, will continue to monitor for changes Q1hr and PRN. Bed in low and locked position, rails up x2, no-slip socks on. Dressings to bilateral feet clean, dry, intact. Patients own wheelchair at bedside.
[2019-03-15] MEDS: Pro-Stat SF 30ml Vanilla PO SCH ×2 (08:00→17:04)
[2019-03-15 09:00] VITALS: BP 121/74
[2019-03-15] MEDS: cefTRIAXone 1GM/50ML D5W 50 ML IV SCH (09:55)
[2019-03-15] MEDS: FAMOTIDINE 20 MG TAB PO SCH ×2 (09:55→22:34)
[2019-03-15] MEDS: ASCORBIC ACID 500 MG TAB PO SCH (09:55)
[2019-03-15] MEDS: CITALOPRAM HYDROBR 20 MG TAB PO SCH (09:55)
[2019-03-15] MEDS: ASPirin-EC 81 mg tab PO SCH (09:55)
[2019-03-15] MEDS: SODIUM CHLOR 0.9% PF (SALINE LOCK) 10ML VIAL/SYR IV SCH ×2 (10:02→22:00)
[2019-03-15] MEDS: Glucerna Carbsteady SHAKE Stawberry 8oz PO SCH ×3 (10:02→18:05)
[2019-03-15] MEDS: INSULIN LANTUS (GLARGINE) 1 /0.01ml (100units/ml) SC SCH ×3 (10:03→22:00)
[2019-03-15 12:35] VITALS: BP 111/75
[2019-03-15] MEDS: DAKINS HALF STR 0.25% (NaHypochlorite) 473 ML TOPICAL SOL TOP SCH ×2 (12:41→22:35)
[2019-03-15] MEDS: VANCOMYCIN 1GM/250ML 250 ML IV SCH ×2 (12:41→20:43)
[2019-03-15 16:23] VITALS: BP 141/76
--- NOTE | 2019-03-15 17:00 | NUR ---
HIGH GLUCOSE CHECK PATIENT ASKED FOR SUGAR CHECK TO BE TAKEN EARLY, THAT SHE FELT HER FINGERS TINGLING. PATIENTS WAS BEDSIDE WITH FAST FOOD FOR PATIENT, POWERADE AND A BAG OF CEREAL AND SNACKS. INFORMED PATIENT THAT SHE IS NOT ALLOWED TO BE EATING FOOD FROM OUTSIDE OF HOSPITAL DUE TO INABILITY TO MONITOR CARB INTAKE, AND THAT KEEPING SUGARS LOW WILL HELP WITH WOUND HEALING. PATIENT VERBALIZES UNDERSTANDING BUT INSISTS ON KEEPING FOOD AT BEDSIDE. ON CHECKING GLUCOSE RECEIVED 409 AND 440. PATIENT WAS SURPRISED STATING SHE ONLY DRANK A SIP OF THE POWERADE AND A BAG OF CHIPS. PAGE SENT OUT TO MINE SUPERVISOR HOSPITALIST REGARDING CRITICAL SUGAR. 20 UNITS REGULAR INSULIN ADMINISTERED AT 1710. INFORMED PATIENT THAT I AM AWAITING A CALL BACK AND THAT I NEED TO RECHECK HER SUGAR. CALL BACK FROM STEVE SHETH AT 1730 WITH NEW ORDERS TO INCREASE LANTUS AND ADMINISTER 3 UNITS OF INSULIN REGULAR IV NOW. UPON RETURNING TO ROOM TO ADMINISTER PATIENT AND PATIENTS ARE NOT PRESENT. PAGE SENT OUT TO SECURITY AT 1750 FOR PATIENT TO RETURN TO ROOM TO ADMINISTER AND RECHECK SUGAR. ALL PATIENTS BELONGINGS STILL IN ROOM, AWAITING RETURN.
[2019-03-15] MEDS ORDERED: InsuLIN REG 1unit/0.01ml Soln (100units/ml) IV ONE (17:30)
--- NOTE | 2019-03-15 18:15 | NUR ---
GLUCOSE RECHECK 329 PAGE TO STEVE SHETH IF NEED FOR ADDITIONAL INSULIN ADMINISTRATION, PATIENT IS NOW EATING FOOD HER BROUGHT FROM OUTSIDE THE HOSPITAL.
[2019-03-15 22:00] VITALS: BP 115/68
[2019-03-15] MEDS: ATORVASTATIN 20 MG TAB PO SCH (22:35)
[2019-03-16] MEDS: InsuLIN REG 1unit/0.01ml Soln (100units/ml) SC SCH ×4 (00:01→17:29)
[2019-03-16] MEDS: VANCOMYCIN 1GM/250ML 250 ML IV SCH ×2 (03:56→12:01)
[2019-03-16 05:00] VITALS: BP 111/64
[2019-03-16] MEDS: ACCU-CHEK COMFORT CURVE STRIP VI SCH ×4 (06:00→16:53)
[2019-03-16] MEDS: Pro-Stat SF 30ml Vanilla PO SCH ×2 (08:00→17:14)
[2019-03-16] MEDS: Glucerna Carbsteady SHAKE Stawberry 8oz PO SCH ×3 (08:01→17:14)
[2019-03-16] MEDS: cefTRIAXone 1GM/50ML D5W 50 ML IV SCH (08:33)
[2019-03-16] MEDS: SODIUM CHLOR 0.9% PF (SALINE LOCK) 10ML VIAL/SYR IV SCH (08:50)
[2019-03-16 09:00] VITALS: BP 113/71
[2019-03-16] MEDS: ASPirin-EC 81 mg tab PO SCH (09:29)
[2019-03-16] MEDS: CITALOPRAM HYDROBR 20 MG TAB PO SCH (09:30)
[2019-03-16] MEDS: ASCORBIC ACID 500 MG TAB PO SCH (09:30)
[2019-03-16] MEDS: FAMOTIDINE 20 MG TAB PO SCH (09:30)
[2019-03-16] MEDS: INSULIN LANTUS (GLARGINE) 1 /0.01ml (100units/ml) SC SCH (09:31)
[2019-03-16] MEDS: DAKINS HALF STR 0.25% (NaHypochlorite) 473 ML TOPICAL SOL TOP SCH (10:03)
--- NOTE | 2019-03-16 12:33 | NUR ---
Discharge planning per SS consult patient has orders to dc to SNF placement for IB ABX, wound care and picc line care. Referral sent to [facility] on 03.13.19. Received a call from Karen at [facility] and was advised that they cannot accept this patient at this time due to age and substance abuse history. Referral faxed to [place] [place], and [facility]. Awaiting acceptance.
[2019-03-16 12:47] VITALS: BP 124/70
--- NOTE | 2019-03-16 16:22 | NUR ---
Patient has discharge orders for SNF for IV ABX. Patient was accepted at [facility] to room 406-A under Dr. Hamlin. Transportation was arranged with [phone], and picker/puller time is at 6pm. Nurse hightower was advised. Addendum: 03/16/19 at 1624 by JOSH HARRINGTON SS Amended: Links added. Addendum: 03/16/19 at 1642 by JOSH STARKO SS Nurse was cara Ceballos.
[2019-03-16 17:00] VITALS: BP 110/67
--- NOTE | 2019-03-16 18:02 | NUR ---
REPORT CALLED TO WILL, ACCEPTING NURSE AT [facility]. [phone]. ALL PAPERWORK SIGNED. AWAITING TRANSPORT AT THIS TIME.
--- NOTE | 2019-03-16 18:36 | NUR ---
PT TRANSPORTED TO FACILITY VIA AMBULANCE AT THIS TIME.
--- NOTE | 2019-03-17 09:41 | NUR ---
Pt was transferred to [place] for further care on her feet. Pt will receive care for the wounds on her feet and for antibiotics. Addendum: 03/17/19 at 0948 by DEISI RODRIGUEZ SS Amended: Links added.
== END 2019-03-16 18:30 | DRG 720 ==
LOC: ER 00:08 → OVERFLOW 00:09 → WEST WING 08:55
PROVIDERS: ADMIT Nurse Practitioner; ATTEND Internal Medicine
PROC: 0JBR0ZZ Excision of Left Foot Subcutaneous Tissue and Fascia, Open Approach (ICD-10-PCS; 2019-03-11)
PROC: 0JBQ0ZZ Excision of Right Foot Subcutaneous Tissue and Fascia, Open Approach (ICD-10-PCS; 2019-03-11)
PROC: 02HV33Z Insertion of Infusion Device into Superior Vena Cava, Percutaneous Approach (ICD-10-PCS; principal; 2019-03-13)
DX: A41.9 Sepsis, unspecified organism (principal); E43 Unspecified severe protein-calorie malnutrition; E11.51 Type 2 diabetes mellitus with diabetic peripheral angiopathy without gangrene; E11.40 Type 2 diabetes mellitus with diabetic neuropathy, unspecified; E86.0 Dehydration; E11.69 Type 2 diabetes mellitus with other specified complication; M86.172 Other acute osteomyelitis, left ankle and foot; E11.621 Type 2 diabetes mellitus with foot ulcer; M00.9 Pyogenic arthritis, unspecified; E87.1 Hypo-osmolality and hyponatremia; L97.529 Non-pressure chronic ulcer of other part of left foot with unspecified severity; L97.519 Non-pressure chronic ulcer of other part of right foot with unspecified severity; F41.9 Anxiety disorder, unspecified; G47.00 Insomnia, unspecified; F31.9 Bipolar disorder, unspecified; F15.90 Other stimulant use, unspecified, uncomplicated; K59.00 Constipation, unspecified; E11.65 Type 2 diabetes mellitus with hyperglycemia; B95.61 Methicillin susceptible Staphylococcus aureus infection as the cause of diseases classified elsewhere; D47.3 Essential (hemorrhagic) thrombocythemia; E78.5 Hyperlipidemia, unspecified; Z59.0 Homelessness; Z91.19 Patient's noncompliance with other medical treatment and regimen; Z88.8 Allergy status to other drugs, medicaments and biological substances; Z80.0 Family history of malignant neoplasm of digestive organs; Z84.89 Family history of other specified conditions; Z83.3 Family history of diabetes mellitus; Z79.82 Long term (current) use of aspirin; Z79.899 Other long term (current) drug therapy; Z79.4 Long term (current) use of insulin; Z91.5 Personal history of self-harm; Z68.28 Body mass index [BMI] 28.0-28.9, adult
CPT/HCPCS: 36415; 36569; 36600; 71045; 73630; 73700; 73718; 80048; 80053; 80061; 80202; 80307; 81001; 81025; 82010; 82805; 82962; 83036; 83605; 83735; 84100; 84550; 84702; 85025; 85610; 85652; 85730; 86141; 87040; 87076; 87077; 87186; 87205; 93005; 93926; G0378; J0696; J1815; J1885; J3490; J7060

== ENCOUNTER 2019-08-31 00:24 | Inpatient (IN) | payer MEDICAID ==
[~2019-08-31] VITALS: Ht 160 cm; Wt 81.5 kg
[~2019-08-31 00:24] MED LIST changes: -OXY20CRT PO
[2019-08-31] MEDS ORDERED: SODIUM CHLORIDE 0.9% 1,000 ML IV ONE ×2 (01:30→02:30)
[2019-08-31] MEDS ORDERED: cefTRIAXone 1GM/50ML D5W 50 ML IV ONE (01:30)
[2019-08-31 02:00] LABS: Basophils # (auto) 0 10 ^3/uL (0-0.2); Basophils % (auto) 0.2 % (0.0-2.0); Eosinophils # (auto) 0.1 10 ^3/uL (0-0.8); Eosinophils % (auto) 0.8 % (0.0-7.0); Hematocrit 31.9 % (36.0-46.0); Hemoglobin 10.6 g/dL (12.2-16.2); Lymphocytes # (auto) 1.8 10 ^3/uL (0.4-5.4); Lymphocytes % (auto) 12.4 % (10.0-50.0); Mean Corpuscular Hgb Conc. 33.3 g/dL (32.0-36.0); Mean Corpuscular Volume 90.2 fL (80.0-100.0); Monocytes # (auto) 1.1 10 ^3/uL (0-1.3); Monocytes % (auto) 7.6 % (0.0-12.0); Neutrophils # (auto) 11.3 10 ^3/uL (1.6-8.6); Platelet Count (auto) 481 10^3/uL (140-450); Red Blood Cells 3.54 10^6/uL (4.0-5.20); Red Cell Distribution Width 13.3 % (11.8-14.3); White Blood Cell 14.3 10^3/uL (4.4-10.8)
[2019-08-31] MEDS ORDERED: InsuLIN REG 1unit/0.01ml Soln (100units/ml) IV ONE ×2 (02:00→02:30)
[2019-08-31] MEDS ORDERED: KETOROLAC TROMETH 60MG/2ML VIAL IV ONE (02:00)
[2019-08-31 02:18] LABS: Albumin 2.5 g/dL (3.4-5.0); BUN/Creatinine Ratio 13.3; Calcium 7.7 mg/dL (8.5-10.1)
[2019-08-31 02:21] LABS: Bilirubin, Total 0.2 mg/dL (0.2-1.0); Total Protein 6.8 g/dL (6.4-8.2)
[2019-08-31] MEDS ORDERED: SODIUM CHLORIDE 0.9% 1,000 ML IV SCH (02:36)
[2019-08-31 02:37] LABS: INR 1.01 (0.9-1.15)
[2019-08-31] MEDS ORDERED: DEXTROSE (50%) 50ML SYRG IV PRN (02:45)
[2019-08-31] MEDS ORDERED: DOCUSATE SOD 100 MG CAP PO PRN (02:45)
[2019-08-31] MEDS ORDERED: LORazepam 0.5 MG TAB PO PRN (02:45)
[2019-08-31] MEDS ORDERED: ACETAMINOPHEN 325 MG TAB PO PRN (02:45)
[2019-08-31] MEDS ORDERED: MORPHINE SULFATE 4 MG/ML SYR/VIAL IV PRN (02:45)
[2019-08-31] MEDS ORDERED: ONDANSETRON HCL 4 MG/2 ML VIAL IV PRN (02:45)
[2019-08-31] MEDS ORDERED: HYDROcodone-ACET 5/325MG TAB PO PRN (02:45)
--- NOTE | 2019-08-31 03:50 | NUR ---
MS admit from [facility]ON[facility] R admitted to MS. Patient oriented to MELODY WILKERSON, RN primary RN, unit, room, bed, and unit policies regarding patient care and visiting hours. Patient weighed by bed scale and encouraged to call if they need something. All questions and concerns addressed, patient verbalized understanding. Note: Wound pictures taken for reference. Culture collected and sent to lab.
[2019-08-31] MEDS: InsuLIN REG 1unit/0.01ml Soln (100units/ml) SC SCH ×6 (04:00→23:19)
[2019-08-31] MEDS: ACCU-CHEK COMFORT CURVE STRIP VI SCH ×6 (04:40→23:20)
[2019-08-31] MEDS: PIPERACILLIN-TAZOB 3.375GM 100 ML IV SCH ×3 (05:46→21:39)
--- NOTE | 2019-08-31 07:35 | NUR ---
Opening Shift Note Assumed care of patient, asleep in bed but easily aroused. No S/S of distress/SOB or pain. Left foot swollen and non-tender to touch. Instructed on POC and to call for assist PRN, will continue to monitor for changes Q1hr and PRN.
[2019-08-31 08:54] LABS: Basophils # (auto) 0 10 ^3/uL (0-0.2); Basophils % (auto) 0.2 % (0.0-2.0); Eosinophils # (auto) 0.2 10 ^3/uL (0-0.8); Eosinophils % (auto) 1.5 % (0.0-7.0); Hematocrit 29.4 % (36.0-46.0); Hemoglobin 9.7 g/dL (12.2-16.2); Lymphocytes % (auto) 18.4 % (10.0-50.0); Mean Corpuscular Hemoglobin 29.8 pg (28.0-32.0); Mean Corpuscular Hgb Conc. 33.1 g/dL (32.0-36.0); Mean Corpuscular Volume 90.1 fL (80.0-100.0); Monocytes % (auto) 9.5 % (0.0-12.0); Neutrophils # (auto) 7.8 10 ^3/uL (1.6-8.6); Neutrophils % (auto) 70.4 % (37.0-80.0); Platelet Count (auto) 383 10^3/uL (140-450); Red Blood Cells 3.26 10^6/uL (4.0-5.20); Red Cell Distribution Width 13.2 % (11.8-14.3)
[2019-08-31 09:00] VITALS: BP 123/74
[2019-08-31 09:07] LABS: BUN/Creatinine Ratio 16.7; Potassium 3.5 mmol/L (3.5-5.1)
[2019-08-31] MEDS ORDERED: VANCOMYCIN 1GM/250ML 250 ML IV SCH (10:00)
--- NOTE | 2019-08-31 10:00 | NUR ---
Podiatry Consult Dr. Zamora at bedside, patient consented to do incision and drainage procedure at bedside.
--- NOTE | 2019-08-31 10:10 | NUR ---
Non-weight bearing on left foot. Quality Assurance Supervisor Chassis informed patient not to put any weight on her left foot. He instructed her of the complications that can occur and she verbalized understanding.
--- NOTE | 2019-08-31 10:20 | NUR ---
Social Service Consult regarding pt being homeless. [place] pt was at [place] for 4 months for diabetic wound care on one foot. The wound eventually healed. Now there is another wound on the same foot. Pt is a insulin dependent diabetic. Pt states she is awaiting section 8 housing and vouchers. However to the [facility] pt states the program has stopped. Will have pt sign homeless waiver as soon as medical procedure is done. Will give pt clothes if need, a sack lunch and transportation with 30 miles. Addendum: 08/31/19 at 1029 by DEISI PARKER Amended: Links added.
--- NOTE | 2019-08-31 11:00 | NUR ---
WOUND CARE NOTE: WOUND CARE TEAM IN TO SEE PATIENT PER WOUND CARE REQUEST. PATIENT ADMITTED TO [facility] FOR LEFT DIABETIC FOOT ULCER. PATIENT HAS A JADON SCORE OF 17. BEDSIDE NURSE NOTED WOUND TO PATIENT'S LEFT FOOT UPON ADMISSION. PHOTOGRAPHS TAKEN AT THAT TIME FOR REFERENCE. PATIENT IS S/P I&D BY DR. OROPEZA. MINOR BLOODY DRAINAGE NOTED TO DRESSING APPLIED BY ENTERPRISE INTEGRATION ARCHITECT. DRESSING REINFORCED WITH OPTIFOAM AND KERLIX. BEDSIDE NURSE ADVISED OF BID DRESSING ORDERS FROM ENTERPRISE INTEGRATION ARCHITECT. RECOMMEND: BID DRESSING CHANGE PER ENTERPRISE INTEGRATION ARCHITECT ORDERS. SKIN/WOUND CARE PLAN. CONTINUED MONITORING BY WOUND CARE TEAM.
[2019-08-31 13:00] VITALS: BP 146/84
[2019-08-31] MEDS ORDERED: VANCOMYCIN PER PHARMACY 0 MG IV SCH (16:15)
--- NOTE | 2019-08-31 16:20 | NUR ---
D/C Planning Per Social Service consult for walker. Faxed clinical information to [facility] requesting walker to be deliver to front Lobby and to [facility] requesting authorization for [facility]. Per Dora with [facility] walker will be deliver to [facility] Ph:) between the hours of 17:00-19:30. Obtain authorization from [facility] [id number]. Informed STACIA Ramos.
--- NOTE | 2019-08-31 16:50 | NUR ---
Post op shoe delivered from materials and given to patient at bedside.
[2019-08-31 17:00] VITALS: BP 149/86
--- NOTE | 2019-08-31 19:20 | NUR ---
OPENING NOTE Received report from day shift RN. Patient is A&O X's 4 with no s/s of distress and reports no pain. Educated patient on POC and to use call light when in need of assistance. Educated patient not to put any weight on her left foot as MD ordered. Patient verbalized understanding. Bed is in lowest/locked position with side rails up X's 2 and call light is within reach of patient. Commode/walker and post op boot is at bedside. Will continue care.
[2019-08-31] MEDS: VANCOMYCIN 750mg/250ml 250 ML IV SCH (19:31)
[2019-08-31 21:20] VITALS: BP 143/75
[2019-08-31] MEDS: DAKINS QUARTER STR 0.125% (NaHypochlorite) 473 ML TOPICAL SOL TOP SCH (21:39)
--- NOTE | 2019-08-31 22:00 | NUR ---
WOUND CARE wound care to left foot performed as ordered. Patient tolerated well
[2019-09-01] VITALS (7 sets, daily range): BP systolic 103–144; BP diastolic 74–94
--- NOTE | 2019-09-01 | NUR ---
POSITIVE BLOOD CULTURE- PAGED HOSPITALIST
--- NOTE | 2019-09-01 00:12 | NUR ---
INFORMED HOSPITALIST OF BLOOD CULTURE STEVE Gonzalez notified of results of blood culture and the antibiotics that the patient is currently receiving. Will continue care.
[2019-09-01] MEDS: InsuLIN REG 1unit/0.01ml Soln (100units/ml) SC SCH ×6 (03:43→23:35)
[2019-09-01] MEDS: ACCU-CHEK COMFORT CURVE STRIP VI SCH ×6 (03:45→23:36)
[2019-09-01] MEDS: PIPERACILLIN-TAZOB 3.375GM 100 ML IV SCH ×3 (05:28→21:31)
[2019-09-01 06:28] LABS: Basophils # (auto) 0 10 ^3/uL (0-0.2); Basophils % (auto) 0.2 % (0.0-2.0); Eosinophils # (auto) 0.2 10 ^3/uL (0-0.8); Eosinophils % (auto) 2.5 % (0.0-7.0); Hematocrit 30.4 % (36.0-46.0); Hemoglobin 10.2 g/dL (12.2-16.2); Lymphocytes # (auto) 1.9 10 ^3/uL (0.4-5.4); Lymphocytes % (auto) 19.8 % (10.0-50.0); Mean Corpuscular Hemoglobin 30.2 pg (28.0-32.0); Mean Corpuscular Hgb Conc. 33.6 g/dL (32.0-36.0); Mean Corpuscular Volume 89.8 fL (80.0-100.0); Monocytes # (auto) 0.8 10 ^3/uL (0-1.3); Monocytes % (auto) 8.1 % (0.0-12.0); Neutrophils # (auto) 6.7 10 ^3/uL (1.6-8.6); Neutrophils % (auto) 69.4 % (37.0-80.0); Platelet Count (auto) 430 10^3/uL (140-450); Red Blood Cells 3.39 10^6/uL (4.0-5.20); Red Cell Distribution Width 13.1 % (11.8-14.3); White Blood Cell 9.6 10^3/uL (4.4-10.8)
[2019-09-01 06:54] LABS: BUN/Creatinine Ratio 14.3; Calcium 7.7 mg/dL (8.5-10.1)
[2019-09-01] MEDS: VANCOMYCIN 750mg/250ml 250 ML IV SCH ×2 (08:19→19:42)
--- NOTE | 2019-09-01 10:05 | NUR ---
LEFT FOOT DRESSING CHANGE
[2019-09-01] MEDS: DAKINS QUARTER STR 0.125% (NaHypochlorite) 473 ML TOPICAL SOL TOP SCH ×2 (11:30→21:31)
--- NOTE | 2019-09-01 12:30 | NUR ---
Resumed care of patient. Patient resting in bed. no s/s of distress noted
--- NOTE | 2019-09-01 16:27 | NUR ---
Nutrition Assessment Notes Please refer to link for full assessment notes. Est Energy needs: [id number] kcals (25-30 kcal/kgBW) d/t wound Est Protein needs: 71-89 gms/day (1.2-1.5 gm/kgBW) d/t wound Will continue to monitor and reassess prn. Addendum: 09/01/19 at [address] Amended: Links added.
--- NOTE | 2019-09-01 19:00 | NUR ---
OPENING NOTE Received report from day shift RN. Patient is A&O X's 4 with no s/s of distress and reports no pain at this time. Educated patient on POC and to use call light when in need of assistance. Patient verbalized understanding. Patient is aware of non-weight bearing to left foot orders. Bed is in lowest/locked position with side rails up X's 2 and call light is within reach of patient. Commode and walker are at bedside. Will continue care.
--- NOTE | 2019-09-01 22:00 | NUR ---
WOUND CARE wound care done as ordered by MD. Patient tolerated well. Will continue care.
--- NOTE | 2019-09-01 22:02 | NUR ---
LULAD HOSPITALIST BP elevated at 163/93 HR 106. No BP meds available for patient.
--- NOTE | 2019-09-01 22:48 | NUR ---
paged back hospitalist to confirm order
--- NOTE | 2019-09-01 22:54 | NUR ---
RECEIVED CALL BACK FROM HOSPITALIST read back and verified orders
[2019-09-01] MEDS ORDERED: LABETALOL HCL 5 MG/ML 4ML SYRINGE IV ONE (23:00)
--- NOTE | 2019-09-01 23:00 | NUR ---
RECEIVED TELE BOX TELE BOX NUMBER [phone] Will apply monitor before medication administration
--- NOTE | 2019-09-01 23:28 | NUR ---
TEMP REASSESSMENT 98.9 .
[2019-09-02] VITALS (7 sets, daily range): BP systolic 119–156; BP diastolic 59–91
--- NOTE | 2019-09-02 00:29 | NUR ---
BLOOD PRESSURE REASSESSMENT BP 119/59 HR 87
[2019-09-02] MEDS: InsuLIN REG 1unit/0.01ml Soln (100units/ml) SC SCH ×5 (04:00→22:46)
[2019-09-02] MEDS: VANCOMYCIN 750mg/250ml 250 ML IV SCH ×2 (04:07→12:15)
[2019-09-02] MEDS: ACCU-CHEK COMFORT CURVE STRIP VI SCH ×5 (04:08→21:51)
[2019-09-02] MEDS: PIPERACILLIN-TAZOB 3.375GM 100 ML IV SCH ×2 (05:20→14:30)
--- NOTE | 2019-09-02 10:42 | NUR ---
LEFT FOOT DRESSING CHANGE
[2019-09-02] MEDS: DAKINS QUARTER STR 0.125% (NaHypochlorite) 473 ML TOPICAL SOL TOP SCH ×2 (10:52→23:19)
--- NOTE | 2019-09-02 19:30 | NUR ---
Opening Shift Note Assumed care of patient, awake and alert x4. Patient's own walker noted at the bedside. Patient denies pain or shortness of breath at this time. Instructed on plan of care and to call for assistance as needed, patient verbalized understanding. Bed is locked in lowest position, side rails x 2 are up, and call light is within reach.
[2019-09-02] MEDS: VANCOMYCIN 1GM/250ML 250 ML IV SCH (21:51)
--- NOTE | 2019-09-02 23:15 | NUR ---
WOUND CARE Patient noted to have a diabetic ulcer to left foot. Wound is open and draining minimal yellow fluid. Wound care performed as ordered by MD. Patient tolerated well.
[2019-09-02] MEDS: MEROPENEM 1GM IVPB 100 ML IV SCH (23:18)
[2019-09-03] MEDS: ACCU-CHEK COMFORT CURVE STRIP VI SCH ×4 (00:38→12:18)
[2019-09-03] MEDS: InsuLIN REG 1unit/0.01ml Soln (100units/ml) SC SCH ×4 (00:41→12:19)
[2019-09-03] MEDS: VANCOMYCIN 1GM/250ML 250 ML IV SCH ×2 (04:23→12:18)
[2019-09-03 05:00] VITALS: BP 154/84
[2019-09-03] MEDS: MEROPENEM 1GM IVPB 100 ML IV SCH (05:53)
[2019-09-03 08:00] VITALS: BP 155/78
[2019-09-03 09:00] VITALS: BP 155/78
[2019-09-03] MEDS: DAKINS QUARTER STR 0.125% (NaHypochlorite) 473 ML TOPICAL SOL TOP SCH (10:01)
--- NOTE | 2019-09-03 10:33 | NUR ---
LEFT FOOT DRESSING CHANGE
[2019-09-03] MEDS ORDERED: CIPROFLOXACIN HCL 500 MG TAB PO ONE (12:45)
[2019-09-03] MEDS ORDERED: SULFAMETHOX W/TRIMETH(800/160MG) DS TAB PO ONE (12:45)
[2019-09-03 13:00] VITALS: BP 147/74
--- NOTE | 2019-09-03 14:57 | NUR ---
PATIENT DISCHARGED HOME WITH TAXI VOUCHER. TELEMETRY BOX REMOVED AND RETURNED TO TELEMETRY DEPARTMENT. ALL IV ACCESS DISCONTINUED. ALL DISCHARGE INSTRUCTIONS GIVEN. ALL DISCHARGE PAPERWORK SIGNED.
== END 2019-09-03 15:00 | disposition home or self-care (01) | DRG 720 ==
LOC: ER 00:24 → WEST WING 00:25 → OVERFLOW 00:25 → UNDOADMIN 00:25 → TELE-WESTW 09-01 23:34
PROVIDERS: ADMIT Hospitalist; ATTEND Internal Medicine Nephrology
PROC: 0H9NXZZ Drainage of Left Foot Skin, External Approach (ICD-10-PCS; principal; 2019-08-31)
DX: A41.9 Sepsis, unspecified organism (principal); E11.610 Type 2 diabetes mellitus with diabetic neuropathic arthropathy; E11.621 Type 2 diabetes mellitus with foot ulcer; L97.429 Non-pressure chronic ulcer of left heel and midfoot with unspecified severity; E11.65 Type 2 diabetes mellitus with hyperglycemia; L03.116 Cellulitis of left lower limb; L02.612 Cutaneous abscess of left foot; F41.9 Anxiety disorder, unspecified; F32.9 Major depressive disorder, single episode, unspecified; D63.8 Anemia in other chronic diseases classified elsewhere; E88.09 Other disorders of plasma-protein metabolism, not elsewhere classified; I10 Essential (primary) hypertension; R59.0 Localized enlarged lymph nodes; Z91.14 Patient's other noncompliance with medication regimen; Z80.0 Family history of malignant neoplasm of digestive organs; Z83.3 Family history of diabetes mellitus; Z85.038 Personal history of other malignant neoplasm of large intestine
CPT/HCPCS: 36415; 73700; 80048; 80053; 80202; 82565; 82962; 83036; 83605; 85025; 85379; 85610; 85652; 87040; 87077; 87147; 87186; 87205; 93971; 96365; 96375; G0378; J0696; J1815; J1885; J2185; J2405; J2543; J3490